=== PATIENT | female | born 1980 | race Caucasian/White ===

== ENCOUNTER 2021-02-15 10:25 | Outpatient (REF) | payer OTHER, SELFPAY ==
--- NOTE | ~2021-02-15 | FL_ITS ---
EXAMINATION: FL BARIUM SWALLOW CLINICAL INFORMATION: Dysphagia with tablet. COMPARISON: None TECHNIQUE: Barium swallow examination is performed using fluoroscopic evaluation in addition to multiple fluoroscopic spot views. The patient is imaged both upright and prone and using both thick and thin sulfate along with effervescent granules. Fluoroscopy time: 1.7 minutes DAP: 22.01 Gy-cm2 Images: 50 FINDINGS: Following oral administration of thick barium, barium-coated turkey and barium tablet in upright view, there is normal propagation of bolus from the oral cavity through the pharynx, esophagus into stomach without any evidence of obstruction, narrowing or stricture. On placing patient prone and oral administration of thin barium, there is good distention of the esophagus without any intraluminal filling defect or extrinsic impression. In supine view, there is no hiatal hernia or gastroesophageal reflux. FL/FL barium swallow IMPRESSION: Unremarkable barium swallow exam in upright and lying position.
== END 2021-02-15 10:26 | disposition home or self-care (01) ==
LOC: HO.XRAY 10:25
PROVIDERS: PCP Family Medicine; Visit Provider Internal Medicine Gastroenterology
DX: R13.12 Dysphagia, oropharyngeal phase (principal)
CPT/HCPCS: 74220

== ENCOUNTER 2021-03-06 06:23 | Day surgery (SDC) | payer OTHER, SELFPAY ==
[2021-02-26 20:13] VITALS: BMI 35.0
--- NOTE | 2021-03-05 09:15 | P.CONAN_ITS ---
Documented by User: Anca Kim NP 03/05/21 09:18 HPI - Anesthesia Eval Consult details Narrative: 41yo F for ?Colonoscopy [facility] Past Medical History Medical History Depression Diabetes Elevated cholesterol Environmental allergies H/O hidradenitis suppurativa Social History Social History Patient Tobacco Use Status: Never used Tobacco Use of substances other than those prescribed or required for medical reasons: No Are you DNR?: No Advance Directives: No Advance Directives Information Provided: No Advance Directives on File: No Recently lost weight without trying: No Nutrition Risks: No Nutritional Risk Patient : No Meds Allergies Allergy/AdvReac Type Severity Reaction Status Date / Time Penicillins Allergy Unknown Unknown Verified 02/27/21 12:41 Home Medications Medication Instructions Recorded Confirmed Last Taken Type atorvastatin 10 mg tablet 10 mg PO BEDTIME 02/26/21 02/26/21 Unknown History dulaglutide 1.5 mg/0.5 mL 1.5 mg SUBCUT QWEEK 02/26/21 02/26/21 Unknown History subcutaneous pen injector (Trulicity) empagliflozin 10 mg tablet 10 mg PO DAILY 02/26/21 02/26/21 Unknown History (Jardiance) escitalopram oxalate 10 mg tablet 10 mg PO DAILY 02/26/21 02/26/21 Unknown History fexofenadine 180 mg tablet 180 mg PO DAILY 02/26/21 02/26/21 Unknown History (Joya Allergy) fluticasone propionate 50 2 spray INTRANASAL DAILY 02/26/21 02/26/21 Unknown History mcg/actuation nasal spray,suspension Exam Exam Date and Time: March 05, 2021 0915 Height,Weight and Vital Signs: Height 5 ft 3 in Weight 89.811 kg Assessment and Plan Assessment Anesthesia Assessment: Chart Reviewed Documented by User: Kaycee Tavares MD 03/06/21 07:26 [facility] Past Medical History Medical History Depression Diabetes Elevated cholesterol Environmental allergies H/O hidradenitis suppurativa Surgical History History of Problems with Anesthesia: No Social History Social History Patient Tobacco Use Status: Never used Tobacco Use of substances other than those prescribed or required for medical reasons: No Are you DNR?: No Advance Directives: No Advance Directives Information Provided: No Advance Directives on File: No Recently lost weight without trying: No Nutrition Risks: No Nutritional Risk Patient : No Meds Allergies Allergy/AdvReac Type Severity Reaction Status Date / Time Penicillins Allergy Unknown Unknown Verified 02/27/21 12:41 Home Medications Medication Instructions Recorded Confirmed Last Taken Type atorvastatin 10 mg tablet 10 mg PO BEDTIME 02/26/21 02/26/21 Unknown History dulaglutide 1.5 mg/0.5 mL 1.5 mg SUBCUT QWEEK 02/26/21 02/26/21 Unknown History subcutaneous pen injector (Trulicity) empagliflozin 10 mg tablet 10 mg PO DAILY 02/26/21 02/26/21 Unknown History (Jardiance) escitalopram oxalate 10 mg tablet 10 mg PO DAILY 02/26/21 02/26/21 Unknown History fexofenadine 180 mg tablet 180 mg PO DAILY 02/26/21 02/26/21 Unknown History (Joya Allergy) fluticasone propionate 50 2 spray INTRANASAL DAILY 02/26/21 02/26/21 Unknown History mcg/actuation nasal spray,suspension Exam Airway Mallampati Class: II TM Dist: >3cm Neck ROM: Full Loose/Missing/Broken Teeth: No Heart: RRR Lungs: CTA Assessment and Plan Assessment Anesthesia Assessment: Anesthesia Plan Discussed Final Anesthetic Review History of Problems with Anesthesia: No NPO: Yes ASA Class: II Final Preanesthetic Review: Meds/Allgs Chart Reviewed, Consent Obtained/Reviewed and Anes Risks/Benef Reviewed Patient Risk: Low Procedure Risk: Low Anesthetic Plan Anesthetic Plan: MAC: Disposition: Standard PACU
[2021-03-06 06:44] LABS: UPreg QC Valid YES; Urine Pregnancy NEGATIVE (NEGATIVE)
[2021-03-06 06:49] LABS: Glucose, Whole Blood 116 mg/dL (60-115)
[2021-03-06 06:50] VITALS: BP 133/76; PULSE 91; RESP 16; TEMP 36.6; O2SAT 97
[2021-03-06] MEDS: Lactated Ringers 1,000 ML 100 ML IVCONT (06:51)
--- NOTE | 2021-03-06 07:28 | MHC.SHP ---
Pre-Procedural Eval Section A Date of Service: 03/06/21 The patient is an INPATIENT: No Changes since office visit: No Cold of Flu in the past 2 weeks, No New Medical Problems, No Changes in Medication and No Patient answered all questions The History & Physical has been completed within 30 days and I have reviewed it.: Yes Section B Chief Complaint: rectal bleeding Allergies: Allergies Allergy/AdvReac Type Severity Reaction Status Date / Time Penicillins Allergy Unknown Unknown Verified 02/27/21 12:41 Plan I have reviewed the history and physical and performed a pertinent physical examination on my patient. No changes have occurred unless specified.
[2021-03-06 07:55] VITALS: BP 98/55; PULSE 86; RESP 18; TEMP 36.4; O2SAT 100
--- NOTE | 2021-03-06 08:00 | PM.OP ---
Brief Operative Note Date of Service: 03/06/21 Pre-op diagnosis: rectal bleeding Post-op diagnosis: same (normal) Surgeon: Eamon Farley Anesthesia: MAC Was an Quality Assurance Supervisor Trim used for this Procedure?: No Estimated blood loss (mL): 2 Pathology: other (bx's ti, r colon and sigmoid) Condition: stable Disposition: PACU
[2021-03-06 08:10] VITALS: BP 116/76; PULSE 88; RESP 17; TEMP 36.2; O2SAT 97
--- NOTE | 2021-03-06 08:23 | OP_ITS ---
SURGEON: Eamon Farley MD INDICATIONS: Rectal bleeding. PREOPERATIVE DIAGNOSIS: POSTOPERATIVE DIAGNOSIS: PROCEDURE PERFORMED: Colonoscopy to the terminal ileum with biopsy. ESTIMATED BLOOD LOSS: COMPLICATIONS: ANESTHESIA: ASSISTANTS: SPECIMENS: MEDICATIONS: Monitored anesthesia care. DESCRIPTION OF PROCEDURE: History and physical performed. The risks and benefits of the procedure were explained to the patient. Informed consent was obtained. The patient was placed in the left lateral decubitus position. A digital rectal exam was performed and was found to be normal. The Olympus pediatric video colonoscope was introduced into the rectum and advanced to the cecum without difficulty. The cecum was identified by transillumination, palpation, and identification of ileocecal valve. Examination was performed. Scope was removed. She tolerated the procedure well and was taken to recovery area in stable condition. FINDINGS: The terminal ileum was normal, this was biopsied. The visualized colonic mucosa was normal with no evidence of inflammatory bowel disease. Random biopsies were obtained from the right colon in the sigmoid. Retroflexed examination showed hypertrophic anal papillae. There was no evidence of perianal inflammatory bowel disease. IMPRESSION: Normal colonoscopy. RECOMMENDATION: Follow up the biopsy results. Routine screening colonoscopy in 10 years. MD TAYLOR Iqbal/JANNETH / [id number]
== END 2021-03-06 08:56 | disposition home or self-care (01) ==
PROVIDERS: Nurse Practitioner; PCP Family Medicine; Visit Provider Internal Medicine Gastroenterology
PROC: 0DJD8ZZ Inspection of Lower Intestinal Tract, Via Natural or Artificial Opening Endoscopic (ICD-10-PCS; CPT 45378; principal; 2021-03-06 07:30)
DX: K62.5 Hemorrhage of anus and rectum (principal); Z86.010 Personal history of colon polyps; K62.89 Other specified diseases of anus and rectum; Z83.79 Family history of other diseases of the digestive system; E11.9 Type 2 diabetes mellitus without complications; E78.00 Pure hypercholesterolemia, unspecified; F32.9 Major depressive disorder, single episode, unspecified; Z79.899 Other long term (current) drug therapy; Z91.09 Other allergy status, other than to drugs and biological substances; Z79.51 Long term (current) use of inhaled steroids; Z88.0 Allergy status to penicillin
CPT/HCPCS: 45380; 81025; 82947; 88305